=== PATIENT | female | born 1990 | race Caucasian/White ===

== ENCOUNTER 2024-04-30 09:57 | Emergency (ER) | payer BC ==
[~2024-04-30] VITALS: Ht 167.6 cm; Wt 83.9 kg
[2024-04-30 09:59] VITALS: O2SAT 100
[2024-04-30] MEDS: ONDANSETRON ODT 4 MG TAB.RAPDIS SL ONE (10:42)
[2024-04-30] MEDS ORDERED: ONDANSETRON ODT 4 MG TAB.RAPDIS ONE (10:42)
[2024-04-30 10:53] LABS: BASOPHILS % (AUTO) 0.3 % (0.0-2.0); EOSINOPHILS % (AUTO) 0.5 % (0.0-7.0); HEMATOCRIT 39.8 % (31.2-41.9); HEMOGLOBIN 13.7 g/dL (10.9-14.3); LYMPHOCYTES # (AUTO) 1.5 K/uL (0.8-4.8); LYMPHOCYTES % (AUTO) 21.4 % (20.5-51.5); MEAN CORPUSCULAR HEMOGLOBIN 32.3 uug (24.7-32.8); MEAN CORPUSCULAR HGB CONC 35 g/dL (32.3-35.6); MEAN CORPUSCULAR VOLUME 93.9 fL (75.5-95.3); MONOCYTES # (AUTO) 0.6 K/uL (0.1-1.30); MONOCYTES % (AUTO) 8.1 % (0.0-11.0); NEUTROPHILS % (AUTO) 69.7 % (38.5-71.5); PLATELET COUNT (AUTO) 204 K/uL (179-408); RED BLOOD CELL COUNT(AUTO) 4.24 MIL/uL (3.63-4.92); RED CELL DISTRIBUTION WIDTH 12.8 % (12.3-17.7); WHITE BLOOD COUNT (AUTO) 7.2 K/uL (3.8-11.8)
[2024-04-30 10:58] LABS: CALCIUM 8.9 mg/dL (8.5-10.1); CREATININE 0.6 mg/dL (0.6-1.3); POTASSIUM 3.4 mmol/L (3.5-5.1)
[2024-04-30 11:04] LABS: ALBUMIN 3.2 g/dL (3.4-5.0); BILIRUBIN,DIRECT 0.3 mg/dL (0.0-0.2); BILIRUBIN,TOTAL 0.7 mg/dL (0.2-1.0); DIFFERENTIAL COMMENT 1; TOTAL PROTEIN, SERUM 6.8 g/dL (6.4-8.2)
[2024-04-30 11:45] LABS: *BLOOD, URINE 2+ (NEGATIVE); *CLARITY,URINE CLEAR (CLEAR); *COLOR,URINE YELLOW (YELLOW); *KETONES,URINE 3+ (NEGATIVE); *PROTEIN,URINE TRACE (NEGATIVE); *UROBILINOGEN,URINE 0.2 E.U./dl (NORMAL); LEUKOCYTE ESTERASE ,URINE TRACE (NEGATIVE); NITRITE, URINE NEGATIVE (NEGATIVE); PH,URINE 6.5 (5.0-8.0); UGLUCOSE NEGATIVE (NEGATIVE)
[2024-04-30] MEDS ORDERED: ONDA4TAB5 PO (11:48)
[2024-04-30 11:50] LABS: *BILIRUBIN,URIN 1+ (NEGATIVE)
--- NOTE | 2024-04-30 11:52 | NUR ---
Patient discharged to home in stable condition. Written and verbal after care instructions given. Patient verbalizes understanding of instructions. Stressed follow up or return to ER for worsening s/s.
[2024-04-30 11:58] LABS: BACTERIA,URINE RARE /HPF (NONE SEEN); SQUAMOUS EPITHELIAL CELL,UR FEW /HPF (NONE SEEN)
== END 2024-04-30 11:53 | disposition home or self-care (01) ==
LOC: ER 09:57
DX: R10.32 Left lower quadrant pain (principal); B34.9 Viral infection, unspecified; R11.0 Nausea; R74.01 Elevation of levels of liver transaminase levels; E28.2 Polycystic ovarian syndrome; K20.0 Eosinophilic esophagitis; E87.6 Hypokalemia; Z79.899 Other long term (current) drug therapy; Z20.822 Contact with and (suspected) exposure to COVID-19; Z88.0 Allergy status to penicillin; Z88.1 Allergy status to other antibiotic agents
CPT/HCPCS: 36415; 85025; A4606; A4663; Q0162